=== PATIENT | female | born 1990 ===

== ENCOUNTER 2021-05-05 12:49 | Emergency (ER) | payer OTHER ==
--- OUTSIDE RECORDS SUMMARY | 2021-05-05 12:51 | XMS REPORT | Continuity of Care Document ---
:1990 Author Organization [facility] Address [address] [place] [address] Care Team Providers Name Role Phone Pcp, Does Not Have A Primary Care Physician Lee MUÑIZ, S Attending Clinician Del HOWARD Attending Clinician Unavailable Payers Payer Name Policy Type Policy Number Effective Date Expiration Date S ourlio Advance Directives Directive Decision Effective Termination Comments Source Date Date Healthcare Agents on N/A [facility] ersity FileNameRelationshipHealthcare [facility] Agent Medical RelationshipCommunicationPatricia Branch [facility] CenterolekGrandparentHealth Care [phone] (Home) Problems Condition Condition Condition Status Onset Resolution Last Treating Co mments Source Name Details Category Date Date Treatment Clinician Date 39 weeks 39 weeks Disease Active Unive rs gestation gestation 1-06 ity of of of 00:00: [place] 00 [facility] boaz Branch Positive Positive Disease Active 2016-02 Unive rs GBS test GBS test 04-07 ity of 00:00: [place] 00 Medical Branch Contracept Contracept Disease Active 2016-02 Overview : Univers frank frank 2 Formattin ity of management management 00:00: g of this note Medical might be Branch different from the original. Declines tubal UTI in UTI in Disease Active 2016-02 Overview: Univer s 03-22 Formattin i ty of 00:00: g of this note Medical might be Branch different from the original. Reports diagnosed in the ER b[place] t, reports she has not started the meds prescribe d due to insurance . SARA neg Supervisio Supervisio Disease Active 2016-02 U nivers n of n of 02-27 ity of high-risk high[place] [facility] Multiparit Multiparit Disease Active 2016-02 U nivers y y 02-27 ity of 00:00: [place] 00 Medical Branch History of History of Disease Active 2016-02 U nivers depression depression 02-27 it y of 00:00: [place] [facility] History of History of Disease Active 2016-02 Overview : Univers 02-27 Formattin ity of section section 00:00: g of this [place] 00 note Medical might be Branch different from the original. Primary low transvers e c section-- see scanned records Allergies, Adverse Reactions, Alerts Allergy Allergy Status Severity Reaction(s) Onset Inactive Treating Comm ents Source Name Type Date Date Clinician LITHIUM DRUG Active Other-Cmnt Unive rs INGREDI 03-12 ity of 00:00: [place] 00 Medical Branch [place] Propensi Active Other - See Un frank ty to comments 03-12 ity of adverse 00:00: [place] reaction 00 Medical s Branch Hydrocod Propensi Active Nausea 2016-02 Univer s one ty to and/or 02-27 ity of adverse Vomiting 00:00: [place] reaction Medical s Branch HYDROCOD DRUG Active N/V 2016-02 Univers ONE INGREDI 02-27 ity of 00:00: [place] 00 Medical Branch Social History Social Habit Start Date Stop Date Quantity Comments Source History of Cigarette Smoker Universi ty of tobacco use [facility] Exposure to Not sure University of SARS-CoV-2 [place] [facility] (event) Branch Alcohol intake 2021-03-12 2021-03-12 Current University of 00:00:00 00:00:00 non-drinker of [facility] alcohol (finding) Branch Tobacco use and 2016-12-28 2016-12-28 Never used Universit y of exposure 00:00:00 00:00:00 [facility] Tobacco Comment 2016-12-28 2016-12-28 3 cigarettes a day U niversity of 00:00:00 00:00:00 [facility] Sex Ass[birth year] At [birth year] Universit y of 00:00:00 00:00:00 [facility] Smoking Status Start Date Stop Date Source Current every day smoker 2016-12-28 00:00:00 Uni versity of [place] [facility] Medications Ordered Filled Start Stop Current Ordering Indication Dosage Frequency Signature Comments Components Source Medication Medication Date Date Medication? Clinician (SIG) Name Name OLANZapine Yes [id number] 20mg Take 1 U nivers (ZYPREXA) 1-26 tablet by ity o f 20 mg 00:00: mouth at [place] tablet 00 bedtime. Medical Branch hydrOXYzine Yes [id number] 50mg Take 1 Univers 50 mg 1-26 tablet by ity of tablet 00:00: mouth [place] 00 every 8 Medical (eight) Branch hours as needed for Itching. SERTraline Yes [id number] 100mg Take 1 Univers 100 mg 1-26 tablet by ity of tablet 00:00: mouth [place] 00 daily. Medical Branch ondansetron Yes 4mg Take 1 Univ ers (ZOFRAN, 1-08 tablet by ity of HYDROCHLORI 00:00: mouth [place] DE,) 4 mg 00 every 8 Medical tablet (eight) Branch hours as needed for N/V unresponsi ve to Promethazi ne. HYDROcodone Yes 1{tbl} Take 1 Un frank -acetaminop 1-08 tablet by ity of hen 5-325 00:00: mouth [place] mg tablet 00 every 6 Medical (six) Branch hours as needed for Pain (scale 4-6). MAGNESIUM Yes Take by Univ ers ORAL 1-07 mouth. ity of 14:45: Indication s: 2 Medical tablets / Branch day KRILL OIL Yes [id number] Take by Univers ORAL 1-07 mouth. ity of 14:45: [place] 28 Medical Branch ferrous Yes 325mg Take 1 Univers sulfate 325 1-07 tablet by ity of mg (65 mg 00:00: mouth 2 [place] iron) 00 (two) Medical tablet times Branch daily. docusate Yes 240mg Take 1 Univer s calcium 240 1-07 capsule by it y of mg capsule 00:00: mouth [place] 00 daily as Medical needed for Branch Constipati on. ibuprofen Yes 600mg Take 1 Unive rs 600 mg 1-07 tablet by ity of tablet 00:00: mouth [place] 00 every 6 Medical (six) Branch hours as needed for Pain (scale 1-3) or Pain (scale 4-6) (Pain). Take with food or milk. Yes 1{tbl} Take 1 Unive rs vitamin 1-07 tablet by ity of w/FA tablet 00:00: mouth [place] 00 daily. Medical Branch hydrOXYzine 2016-02- No [id number] 50mg Take 1 Univers 50 mg 2-19 03-12 tablet by ity of tablet 00:00: 00:00 mouth 3 [place] 00 :00 (three) Medical times Branch daily as needed for Itching. PNV 67-iron 2016-02 Yes [id number] 1{each} Take 1 Univers ps-folate 1-13 Each by ity of no.1-dha 00:00: mouth [place] (VITAFOL 00 daily. Medical ULTRA) 29 Branch mg iron- 1 mg-200 mg Cap Immunizations Ordered Filled Immunization Date Status Comments Sour e Immunization Name Name TDAP 2017-01-19 Completed [facility] 00:00:00 [facility] Vital Signs Vital Name Observation Time Observation Value Comments Source Body temperature 2021-03-12 22:42:00 36.67 Dede [facility] Systolic blood 2021-03-12 21:49:00 132 mm[Hg] Univer sity of pressure [facility] Diastolic blood 2021-03-12 21:49:00 85 mm[Hg] Unive ity of pressure [facility] Heart rate 2021-03-12 21:49:00 100 /min [facility] Respiratory rate 2021-03-12 21:49:00 18 /min [facility] Body weight 2021-03-12 21:49:00 75.297 kg [facility] BMI 2021-03-12 21:49:00 26.00 kg/m2 [facility] Oxygen saturation in 2021-03-12 21:49:00 100 /min [facility] Arterial blood by [facility] Pulse oximetry Branch Procedures Procedure Date / Time Performed Performing Clinician Sour e POCT TEST 2021-03-12 22:24:00 Isabelle Howard [facility] CONSENT/REFUSAL FOR 2021-03-12 21:38:19 Doctor Unassigned, No Un [facility] DIAGNOSIS AND Name Medical Branch TREATMENT NOTICE OF PRIVACY 2021-03-12 21:37:19 Doctor Unassigned, No Univ [facility] PRACTICES Name Medical Branch Encounters Start End Encounter Admission Attending Care Care Encounter Source Date/Time Date/Time Type Type Clinicians Facility Department ID 2021-03-12 2021-03-12 Emergency Lee [facility] [id number] Univers 15:51:00 16:50:00 Isabelle Mathis [facility] [id number] i ty [facility] [id number] [facility] [id number] [facility] 084 Branch 2021-03-12 2021-03-12 Emergency X LEE [facility] ERT [id number] Univers 15:51:00 16:50:00 ISABELLE benedict [facility] Results Test Description Test Time Test Comments Results Result Comments Source PAP TEST, THINPREP, IMAGED 2021-03-24 15:54:19 Test Item Value Reference Range Interpretation Comme nts SOURCE: (test code = Cervical/Endocervical 8001) SLIDES: (test code = 1 8011) LMP: (test code = 8021) 03/05/2021 SPECIMEN ADEQUACY: (test (NOTE) Satisfactory for code = 39589) evaluation. Endocervical cells/transform ation zone component prese nt. INTERPRETATION: (test NILM/NO EPITH. ABNORMALITY;SEE code = 42363) BELOW --- NEGATIVE FOR INTRAEPITHELIAL LESION OR MALIGNANCY Reactive cellul ar changes present (NILM).-------- ADMITTING CLERK: (test MITRA Alberto(ASCP) code = 8101) PATHOLOGIST James Bullock INTERPRETATION BY: (test code = 8122) LOCATION: (test code = (NOTE) [place] [address]) Clinical Pathol ogy [facility], [address] [place] [address], Phone: , CLIA: [id number] i [facility] at [facility] Dept Of Pathology, [address] [place] [address],Phone: , CLIA: [id number] CPT: (test code = 8140) (NOTE) 8817 5, 82021 UNLESS OTHERWISE INDIC ATED, COMPUTER AIDED AND CYTOTECHNOLOGIS T SCREENING PERFO RMED. The Pap test is a screening test with an inherent, but l ow probability of error. Your patient sh ould be reminded to consult you immediately if she experiences any suspicious signs or sy mptoms, regardless of h er Pap test result. An alternate report format c ontaining images or conso lidated prior Pap histo ry is available as ap plicable. VAGINAL PATHOGENS DNA [id number] 17:06:37 Test Item Value Reference Range Interpretation Comments THEA SPECIES (test NEGATIVE NEGATIVE code = 02764) G. VAGINALIS (test POSITIVE NEGATIVE A code = 53821) T. VAGINALIS (test NEGATIVE NEGATIVE UN LESS OTHERWISE code = 39669) INDICATED, ALL TESTING PERFORMED [facility] [address] [place], [place] [id number] 4 LABORATORY DIR JAIMEE: MADELINE ROMO M.D. CLIA NUMBER [id number] CAP ACCREDITATION N O. [id number] CT/NG, TMA, [id number] 11:39:33 Test Item Value Reference Range Interpretation Comments GONORRHEA, TMA NEGATIVE NEGATIVE Assay m ethodology is (test code = nucleic acid am plification 57345) by transcriptio n mediated amplif ication (TMA) utilizing the Aptima Combo 2 Assay. CHLAMYDIA, TMA POSITIVE NEGATIVE A Assay m ethodology is (test code = nucleic acid am plification 34365) by transcriptio n mediated amplif ication (TMA) utilizing the Aptima Combo 2 Assay. UNLESS OTHERWISE INDIC ATED, ALL TESTING PERFORM [facility] [place]. [address] [place] [address] LABORATO RY DIRECTOR: MADELINE SO M.D. CLIA NUMBER [id number] [place] [id number] HEPATITIS PANEL, [id number] 05:57:18 Test Item Value Reference Range Interpretation Comments HEPATITIS A IgM (test NON-REACTIVE NON-REACTIVE code = 54870) HEPATITIS B CORE IgM NON-REACTIVE NON-REACTIVE (test code = 4644) HEPATITIS B SURF AG NON-REACTIVE NON-REACTIVE (test code = 2739) HEPATITIS C ANTIBODY NON-REACTIVE NON-REACTIVE (test code = 4675) INTERPRETATION (NOTE) Hepatiti s A HEPATITIS A: (test code sero logy shows no = 2552) evidence of acu te hepatitis A. INTERPRETATION (NOTE) Hepatiti s B HEPATITIS B: (test code sero logy shows no = 10860) evidence of acu te hepatitis B and no indication of exposure to hepatitis B vir us in the previous sanjiv eight months. INTERPRETATION (NOTE) Hepatiti s C HEPATITIS C: (test code sero logy shows no = 04703) evidence of exposure to hepatitisC viru s at this time. It can take up to 12 months after exposure tothe hepatitis C vir us for antibodies to become detectab le in the bloo d in certain patients. HIV 1/2 4TH GEN, RFLX [id number] 05:57:18 Test Item Value Reference Range Interpretation Comments HIV 1/2 4TH GEN, RFLX CONF (test NON-REACTIVE NON-REACTIVE code = 3514) [id number] 03:15:33 Test Item Value Reference Range Interpretation Comments RPR RESULT (test code = NON-REACTIVE NON-REACTIVE 3501) RPR TITER (test code = 3500) NOT INDIC. TITER NOT INDIC. POCT [id number] 22:24:00 Test Item Value Reference Range Interpretation Comments POCT PREG (test code = 1605) neg On board controls acceptable with present C Line (test code = 3574) POCT PREG LOT # (test code = 3575) [id number] POCT PREG TEST DATE (test 04/14/2022 code = 3576) Lab Interpretation (test code = Normal 10469-2) [facility]
[2021-05-05 14:02] LABS: Urine Blood 2+ (Negative); Urine Glucose Negative (Negative); Urine Protein 2+ (Negative); Urine Specific Gravity >=1.030 (1.005-1.030); Urine pH 5.5 (5.0-7.0)
[2021-05-05 14:06] LABS: Absolute Lymphocytes (CBC) 3.3 K/uL (0.7-4.9); Hematocrit 41.9 % (36.0-45.0); Lymphocytes % 38.9 % (15.3-44.8); MPV 6.9 fL (7.6-11.3); RBC Red Blood Cell Count 4.65 M/uL (3.86-4.86)
[2021-05-05 14:36] LABS: Urine Specific Gravity/Preg >1.030 (1.005-1.030)
[2021-05-05 14:42] LABS: Barbiturates NEGATIVE (NEGATIVE); Benzodiazepines NEGATIVE (NEGATIVE); Cocaine POSITIVE (NEGATIVE); METHAMPHETAM POSITIVE (NEGATIVE); Methadone NEGATIVE (NEGATIVE); Opiates NEGATIVE (NEGATIVE); Phencyclidine NEGATIVE (NEGATIVE); THC Cannibis POSITIVE (NEGATIVE)
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
[2021-05-05 16:03] VITALS: TEMP 98.6
[2021-05-05 16:05] VITALS: BP 123/84; O2SAT 100
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
== END 2021-05-05 15:49 | disposition left against medical advice (07) ==
LOC: ER 12:49
DX: F22 Delusional disorders (principal); F31.9 Bipolar disorder, unspecified; Z72.0 Tobacco use; Z88.5 Allergy status to narcotic agent
CPT/HCPCS: 36415; 80307; 81003; 81025; 85025; 99282

== ENCOUNTER 2021-07-02 20:58 | Emergency (ER) | payer OTHER ==
--- OUTSIDE RECORDS SUMMARY | 2021-07-02 21:01 | XMS REPORT | Continuity of Care Document ---
:1990 Author Organization [facility] Address [address] [place] [address] Care Team Providers Name Role Phone Pcp, Does Not Have A Primary Care Physician NELSON KEN Attending Clinician Unavailable CAROLIN JAMES Attending Clinician Unavailable DAISHA Attending Clinician Unavailable MD JUAN Attending Clinician Unavailable Lee MUÑIZ S Attending Clinician Del HOWARD Attending Clinician Unavailable MD JUAN Admitting Clinician Unavailable Payers Payer Name Policy Type Policy Number Effective Date Expiration Date S ource Problems Condition Condition Condition Status Onset Resolution Last Treating Co mments Source Name Details Category Date Date Treatment Clinician Date 39 weeks 39 weeks Disease Active Unive rs gestation gestation 1-06 ity of of of 00:00: [place] 00 [facility] boaz Branch Positive Positive Disease Active 2016-02 Unive rs GBS test GBS test 2 ity of 00:00: [place] 00 Medical Branch Contracept Contracept Disease Active 2016-02 Overview : Univers frank frank 2- Formattin ity of management management 00:00: g of this note Medical might be Branch different from the original. Declines tubal UTI in UTI in Disease Active 2016-02 Overview: Univer s 05 Formattin i ty of 00:00: g of this [place] note Medical might be Branch different from the original. Reports diagnosed in the ER b[place] t, reports she has not started the meds prescribe d due to insurance . SARA neg Supervisio Supervisio Disease Active 2016-02 U nivers n of n of 02-27 ity of high-risk high[place] [facility] Multiparit Multiparit Disease Active 2016-02 U nivers [...] ity of 00:00: [place] 00 Medical Branch Grapevine Propensi Active Other - See Un frank ty to comments 03-12 ity of adverse 00:00: [place] reaction 00 Medical s Branch Hydrocod Propensi Active Nausea 2016-02 Univer s one ty to and/or 02-27 ity of adverse Vomiting 00:00: [place] reaction 00 Medical s Branch HYDROCOD DRUG Active N/V 2016-02 Univers ONE INGREDI 02-27 ity of 00:00: [place] 00 Medical [place] Social History Social Habit Start Date Stop Date Quantity Comments Source History of Cigarette Smoker Universi ty of tobacco use [facility] Exposure to Not sure University of SARS-CoV-2 [place] Medical (event) Branch Alcohol intake 2021-03-12 2021-03-12 Current University of 00:00:00 00:00:00 non-drinker of [facility] alcohol (finding) Branch Tobacco use and 2016-12-28 2016-12-28 Never used Universit y of exposure 00:00:00 00:00:00 [facility] Tobacco Comment 2016-12-28 2016-12-28 3 cigarettes a day U niversity of 00:00:00 00:00:00 [facility] Sex Ass[birth year] At [birth year] Universit y of 00:00:00 00:00:00 [place] [facility] Smoking Status Start Date Stop Date Source Current every day smoker 2016-12-28 00:00:00 Uni versity of [facility] Medications Ordered Filled Start Stop Current Ordering Indication Dosage Frequency Signature Comments Components Source Medication Medication Date Date Medication? Clinician (SIG) Name Name OLANZapine Yes [id number] 20mg Take 1 U nivers (ZYPREXA) 1-26 tablet by ity o f 20 mg 00:00: mouth at [place] tablet 00 bedtime. Medical Branch hydrOXYzine Yes [id number] 50mg Take 1 Univers 50 mg 1-26 tablet by ity of tablet 00:00: mouth [place] 00 every 8 Medical (eight) Branch hours as needed for Itching. SERTraline Yes [id number] 100mg Take 1 Univers 100 mg 1-26 [...] tablets / Branch day KRILL OIL Yes [id number] Take by Univers ORAL 1-07 mouth. ity of 14:45: Medical Branch ferrous Yes 325mg Take 1 [...] 00 daily. Medical Branch hydrOXYzine 2016-02- No [id number] 50mg Take 1 Univers 50 mg 2-03-12 tablet by ity of tablet 00:00: 00:00 mouth 3 [place] 00 :00 (three) Medical times Branch daily as needed for Itching. PNV 67-iron 2016-02 Yes [id number] 1{each} Take 1 Univers ps-folate 1-13 Each by ity of no.1-dha 00:00: mouth [place] (VITAFOL 00 daily. Medical ULTRA) 29 Branch mg iron- 1 mg-200 mg Cap Immunizations Ordered Filled Immunization Date Status Comments Sour e Immunization Name Name TDAP 2017-01-19 Completed [facility] 00:00:00 [facility] Vital Signs Vital Name Observation Time Observation Value Comments Source Body temperature 2021-03-12 22:42:00 36.67 Dede [facility] Systolic blood 2021-03-12 21:49:00 132 mm[Hg] Univer sity of pressure [facility] Diastolic blood 2021-03-12 21:49:00 85 mm[Hg] Unive ity of pressure [facility] Heart rate 2021-03-12 21:49:00 100 /min [facility] Respiratory rate 2021-03-12 21:49:00 18 /min [facility] Body weight 2021-03-12 21:49:00 75.297 kg [facility] BMI 2021-03-12 21:49:00 26.00 kg/m2 [facility] Oxygen saturation in 2021-03-12 21:49:00 100 /min [facility] Arterial blood by [facility] Pulse oximetry Branch Procedures Procedure Date / Time Performed Performing Clinician Sour e POCT TEST 2021-03-12 22:24:00 Isabelle Howard [facility] CONSENT/REFUSAL FOR 2021-03-12 21:38:19 Doctor Unassigned, No Un [facility] DIAGNOSIS AND Name Medical Branch TREATMENT NOTICE OF PRIVACY 2021-03-12 21:37:19 Doctor Unassigned, No [facility] Medical Branch Encounters Start End Encounter Admission Attending Care Care Encounter Source Date/Time Date/Time Type Type Clinicians Facility Department ID 2021-06-27 2021-06-27 Emergency E JESUS MANUEL, [facility] 7501 [facility] 15:30:00 20:43:00 ANTOINETTE 2021-06-26 2021-06-26 Emergency E JAMES, [facility] 7500 [facility]NW 10:46:00 13:01:00 JOHN 2021-05-11 2021-05-13 Emergency ASHTON, [facility] [id number] [place] 00:00:00 00:00:00 JOHN [address] 2021-03-12 2021-03-12 Emergency CAROLYN Howard [id number] Univers 15:51:00 16:50:00 Isabelle Mathis [place] [id number] i [facility] [id number] [facility] [id number] [facility] boaz 084 Branch 2021-03-12 2021-03-12 Emergency X LEE DEPITA ERT [id number] Univers 15:51:00 16:50:00 ISABELLE benedict [facility] Results Test Description Test Time Test Comments Results Result Comments Source SARS-CoV-2 (COVID-19) RNA [Presence] in Respiratory sp ecimen by 2021-05-12 07:04:38 EMILE with probe detection Test Item Value Reference Range Interpretation Comme nts SARS-CoV-2 (COVID-19) RNA [Presence] in Respiratory specimen by Not detected EMILE with probe detection (test code = 56155-3) Whether patient is employed in a healthcare setting (test code = Un known 67630-1) Whether the patient has symptoms related to condition of interest U nknown (test code = 45110-0) Whether the patient was hospitalized for condition of interest Unkn own (test code = 57626-2) Whether the patient was admitted to intensive care unit (ICU) for U nknown condition of interest (test code = 46089-6) Whether patient resides in a congregate care setting (test code = U nknown 79617-0) status (test code = 26000-1) Unknown Date and time of symptom onset (test code = 54488-0) Unknown PAP TEST, THINPREP, [id number] 15:54:19 Test Item Value Reference Range Interpretation Comments SOURCE: (test code = Cervical/Endoc 8001) ervical SLIDES: (test code = 1 8011) LMP: (test code = 03/05/2021 8021) SPECIMEN ADEQUACY: (NOTE) Sati sfactory for (test code = 37393) evaluati on. Endocervical cells/transform ation zone component present. INTERPRETATION: NILM/NO EPITH. (test code = 77221) ABNORMALITY;SE ------ E BELOW ------ ------- NEGATIVE FOR INTRAEPITHELIAL LESION OR YVETTE ABRAMS Mel[place] ctive cellular change s present (NILM).-------- ------ ------ ------ TANK CAR INSPECTOR: Honorio (test code = 8101) MITRA Dan(ASCP) PATHOLOGIST James INTERPRETATION BY: Kobe (test code = 8122) LOCATION: (test code (NOTE) Specime ns processed = 24606) at [facility], [address] [place] [address], Phone: , CLIA: [id number] interpreted at Clinical Pathol emeterio [facility] Dept Of Patholo gy, [address] [place] [address],Phone: , CLIA: [id number] CPT: (test code = (NOTE) 39016, 120 75 9939) UNLESS OTHERWIS E INDICATED, COMP UTER AIDED AND CYTOTECHNOLOGIS T SCREENING PERFO RMED. The Pap biju t is a screening test with an inherent, bu t low probability of error. Your pa tanja should be remin ded to consult you immediately if she experiences any suspicious signs or symptoms, regardless of h er Pap test result. An alternate repor t format containi ng images or consolidated prior Pap histo ry is available as applicable. VAGINAL PATHOGENS DNA [id number] 17:06:37 Test Item Value Reference Range Interpretation Comments THEA SPECIES (test NEGATIVE NEGATIVE code = ) G. VAGINALIS (test POSITIVE NEGATIVE A code = ) T. VAGINALIS (test NEGATIVE NEGATIVE UN LESS OTHERWISE code = ) INDICATED, ALL TESTING PERFORMED [facility] NICAL PATHOLOGY LABOR [facility], [facility]. [address] [address] 7875 4 LABORATORY DIR JAIMEE: MADELINE ROMO M.D. CLIA NUMBER [id number] CAP ACCREDITATION N O. [id number] CT/NG, TMA, [id number] 11:39:33 Test Item Value Reference Range Interpretation Comments GONORRHEA, TMA NEGATIVE NEGATIVE Assay m ethodology is (test code = nucleic acid am plification 43566) by transcriptio n mediated amplif ication (TMA) utilizing the Aptima Combo 2 Assay. CHLAMYDIA, TMA POSITIVE NEGATIVE A Assay m ethodology is (test code = nucleic acid am plification 07406) by transcriptio n mediated amplif ication (TMA) utilizing the Aptima Combo 2 Assay. UNLESS OTHERWISE INDIC ATED, ALL TESTING PERFORM ED ATCLINICAL PATH [facility], [facility]. [address] [place] [id number] LABORATO RY DIRECTOR: MADELINE SO M.D. CLIA NUMBER [id number] [place] [id number] HEPATITIS PANEL, [id number] 05:57:18 Test Item Value Reference Range Interpretation Comments HEPATITIS A IgM (test NON-REACTIVE NON-REACTIVE code = 19112) HEPATITIS B CORE IgM NON-REACTIVE NON-REACTIVE (test [...] (test code sero logy shows no = 96945) evidence of acu te hepatitis B and no indication of exposure to hepatitis B vir us in the previous sanjiv eight months. INTERPRETATION (NOTE) Hepatiti s C HEPATITIS C: (test code sero logy shows no = 61582) evidence of exposure to hepatitisC viru s at this time. It can take up to 12 months after exposure tothe hepatitis C vir us for antibodies to become detectab le in the bloo d in certain patients. HIV 1/2 4TH GEN, RFLX [id number] 05:57:18 Test Item Value Reference Range Interpretation Comments HIV 1/2 4TH GEN, RFLX CONF (test NON-REACTIVE NON-REACTIVE code = 3514) [id number] 03:15:33 Test Item Value Reference Range Interpretation Comments RPR RESULT (test code = NON-REACTIVE NON-REACTIVE 3501) RPR TITER (test code = 3500) NOT INDIC. TITER NOT INDIC. POCT [id number] 22:24:00 Test Item Value Reference Range Interpretation Comments POCT PREG (test code = 1605) neg On board controls acceptable with present C Line (test code = 3574) POCT PREG LOT # (test code = 3575) [id number] POCT PREG TEST DATE (test 04/14/2022 code = 3576) Lab Interpretation (test code = Normal 93987-6) [facility]
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
== END 2021-07-02 22:31 | disposition home or self-care (01) ==
LOC: ER 20:58
DX: Z71.1 Person with feared health complaint in whom no diagnosis is made (principal)
CPT/HCPCS: 76801; 99284